=== PATIENT | female | born 1995 | race African-American/Black ===

== ENCOUNTER 2022-10-02 12:12 | Day surgery (SDC) | payer BC ==
[2022-09-29 09:02] VITALS: BMI 31.1
[2022-10-02 13:33] VITALS: TEMP 98
[2022-10-02 13:50] VITALS: RESP 16
[2022-10-02 13:51] VITALS: BP 121/70; PULSE 90
== END 2022-10-02 14:27 | disposition home or self-care (01) ==
LOC: FASU-ENDO 12:12
PROVIDERS: ATTEND Internal Medicine Gastroenterology
PROC: 0DJD8ZZ Inspection of Lower Intestinal Tract, Via Natural or Artificial Opening Endoscopic (ICD-10-PCS; principal; 2022-10-02 13:10)
DX: K64.1 Second degree hemorrhoids (principal); K64.8 Other hemorrhoids
CPT/HCPCS: 81025